=== PATIENT | male | born 1945 ===

== ENCOUNTER → 2017-11-10 | Emergency (ER) | payer OTHER ==
[~2017-11-10] VITALS: Ht 182.9 cm; Wt 108.9 kg
[~2017-11-10] MED LIST: KETO10TA2 PO; MEDROLPACK PO; NORFLEX100MG PO
== END | disposition home or self-care (01) ==
LOC: ER 07:47
DX: M54.2 Cervicalgia (principal); M25.511 Pain in right shoulder

== ENCOUNTER 2018-02-20 04:32 | Inpatient (IN) | payer OTHER ==
[~2018-02-20] VITALS: Ht 182.9 cm; Wt 120.2 kg
== END 2018-02-22 17:50 | disposition home or self-care (01) | DRG 439 ==
LOC: ER 04:32 → MEDJ 14:05 → SURH 16:08
PROC: BW21Y0Z Computerized Tomography (CT Scan) of Abdomen and Pelvis using Other Contrast, Unenhanced and Enhanced (ICD-10-PCS; principal; 2018-02-20)
DX: K85.80 Other acute pancreatitis without necrosis or infection (principal); N39.0 Urinary tract infection, site not specified; N40.0 Benign prostatic hyperplasia without lower urinary tract symptoms; E03.8 Other specified hypothyroidism; B96.29 Other Escherichia coli [E. coli] as the cause of diseases classified elsewhere